=== PATIENT | female | born 1985 | race Caucasian/White ===

== ENCOUNTER 2019-03-04 10:20 | Day surgery (SDC) | payer BC ==
[2019-03-04] MEDS ORDERED: PROPOFOL 10 MG/ML VIAL IV ONE (10:21)
[2019-03-04] MEDS ORDERED: FENTANYL PF 100MCG/2ML VIAL IV ONE (10:21)
[2019-03-04] MEDS ORDERED: LIDOCAINE 2% MDV (20MG/ML) 20ML VIAL IV ONE (10:21)
--- NOTE | 2019-03-05 06:02 | Operative Note ---
OPERATION: ESOPHAGOGASTRODUODENOSCOPY with multiple biopsies. INDICATION: A 3-week history of epigastric pain with nausea. The cause of this remains unclear. Ultrasound of the upper abdomen was unremarkable. Upper endoscopy is performed at this time for further evaluation. She denies use of anti-inflammatory medications. ANESTHESIA: Intravenous sedation was administered by the department of anesthesiology and included Diprivan titrated to effect. PROCEDURE: Following informed consent from this alert individual, including a discussion of the risks and benefits of the procedure and an opportunity for the patient to ask questions, the patient was in the left lateral decubitus position. The Olympus [id number] video endoscope was inserted into the esophagus without resistance. The proximal esophagus had a normal appearance with normal folds and distensibility. The mid esophagus likewise was free from changes. The distal esophageal segment demonstrated some erythema at the squamocolumnar junction without ulcerations or erosions noted. The stomach was entered. There was diffuse mild erythematous gastritis noted in the proximal stomach. The antrum evaluated circumferentially demonstrated 2 ulcerations within the antrum, the largest measuring approximately 12 mm in size on the anterior wall with a 7 mm ulceration on the posterior wall. There were also 2 pyloric channel ulcers measuring 6-7 mm in size each. Each ulcer was white-based and no signs of bleeding. The duodenal bulb, sweep, and descending duodenum revealed superficial erythema without ulcerations or erosions noted. The endoscope was then withdrawn back into the body of the stomach. Retroflexion accomplished following air insufflation failed to demonstrate any additional changes. The endoscope was then straightened. Multiple biopsies were taken from throughout the stomach to assess for Helicobacter pylori and check histology. After biopsies, the endoscope was then withdrawn. The patient tolerated the procedure well and was returned to the recovery area in stable condition. IMPRESSION: 1. Two large gastric antral ulcerations measuring 12 and 7 mm in size as described above. 2. Two pyloric channel ulcers measuring 6-7 mm in size. 3. Diffuse gastritis. 4. Duodenitis. RECOMMENDATION: The patient will be started on Protonix 40 mg twice daily at this time. Further recommendations may be forthcoming pending results of biopsy obtained today. The patient will have recheck endoscopy to assess ulcer healing in 8-10 weeks' time. As always, thank you for allowing me to participate in the care of your patient. MIKEL
== END 2019-03-04 12:25 | disposition home or self-care (01) ==
LOC: HOP 10:20
PROVIDERS: ATTEND Internal Medicine Gastroenterology
DX: R10.13 Epigastric pain (principal); R11.14 Bilious vomiting; K25.9 Gastric ulcer, unspecified as acute or chronic, without hemorrhage or perforation; K29.70 Gastritis, unspecified, without bleeding; K29.80 Duodenitis without bleeding; I10 Essential (primary) hypertension

== ENCOUNTER 2019-05-13 08:54 | Day surgery (SDC) | payer BC ==
[2019-05-13] MEDS ORDERED: LIDOCAINE 2% MDV (20MG/ML) 20ML VIAL IV ONE (08:55)
[2019-05-13] MEDS ORDERED: PROPOFOL 10 MG/ML VIAL IV ONE (08:55)
[2019-05-13] MEDS ORDERED: FENTANYL PF 100MCG/2ML VIAL IV ONE (08:55)
--- NOTE | 2019-05-14 09:11 | Operative Note ---
OPERATION: ESOPHAGOGASTRODUODENOSCOPY with biopsy. INDICATION: Recent finding of antral gastric ulcerations and pyloric channel ulcerations (total of 4). The patient returns at this time after treatment with Protonix twice daily for reevaluation and to assess healing. Clinically she states that she is still feeling abdominal pain. She might notice some mild improvement. ANESTHESIA: Intravenous sedation was administered by the department of anesthesiology and included Diprivan titrated to effect. PROCEDURE: Following informed consent from this alert individual, including a discussion of the risks and benefits of the procedure and an opportunity for the patient to ask questions, the patient was in the left lateral decubitus position. The Olympus [id number] video endoscope was inserted into the esophagus without resistance. The proximal esophagus had a normal appearance with normal folds and distensibility. The mid and distal esophagus likewise was free from gross abnormalities. The stomach was entered. The gastric fundus and pars medial had a normal appearance with normal folds and distensibility. The antrum evaluated circumferentially demonstrated completely healed antral ulcerations with some minimal focal patchy erythema only. The pylorus was patent. The duodenal bulb, sweep and descending duodenum were examined in a serial fashion and demonstrated some mild patchy erythema also noted in the duodenal bulb. The sweep and descending duodenum were normal. The endoscope was then drawn back into the body of the stomach. Retroflexion accomplished following air insufflation failed to demonstrate changes. The endoscope was then straightened. Multiple biopsies were taken from the stomach to again assess for histology and rule out H pylori. The endoscope was then withdrawn back through a normal esophagus and removed from the patient. The patient tolerated the procedure well and was returned to the recovery area in stable condition. IMPRESSION: 1. Completely healed gastric and pyloric channel ulcerations. 2. Mild gastritis, biopsies taken. 3. Mild duodenitis involving duodenal bulb. RECOMMENDATION: The patient will continue with Protonix once daily at this time. If not already completed, an ultrasound of the abdomen may prove beneficial. She was also advised to stop smoking and avoid anti-inflammatory drugs. As always, thank you for allowing me to participate in the care of your patient. MIKEL
== END 2019-05-13 10:55 | disposition home or self-care (01) ==
LOC: HOP 08:54
PROVIDERS: ATTEND Internal Medicine Gastroenterology
DX: Z51.89 Encounter for other specified aftercare (principal); K29.50 Unspecified chronic gastritis without bleeding; K29.80 Duodenitis without bleeding; I10 Essential (primary) hypertension
CPT/HCPCS: 81025; 43239; 00731; J3010